=== PATIENT | male | born 1960 | race Caucasian/White ===

== ENCOUNTER 2020-03-29 08:22 | Emergency (ER) | payer OTHER ==
[~2020-03-29] VITALS: Ht 175.3 cm; Wt 84.4 kg
[2020-03-29 08:28] VITALS: Ht 175.3 cm; Wt 84.4 kg
[2020-03-29 09:25] LABS: BASOPHIL % 0.1 % (0-2); PLATELET COUNT 181 x10^3mcL (130-400)
[2020-03-29 09:29] LABS: CALCIUM 8.5 mg/dL (8.5-10.1); CARBON DIOXIDE 30.6 mmol/L (21-32); CHLORIDE SERUM 98 mmol/L (98-107); GFR1 > 60 mL/min; GLUCOSE SERUM 113 mg/dL (74-106); POTASSIUM SERUM 3.9 mmol/L (3.5-5.1); SODIUM SERUM 135 mmol/L (136-145)
[2020-03-29 09:34] LABS: ALKALINE PHOSPHATASE 123 U/L (46-116); ALT/SGPT 166 U/L (16-63); AST/SGOT 264 U/L (15-37); TOTAL PROTEIN, SERUM 6.2 g/dL (6.4-8.2)
[2020-03-29 09:35] LABS: ALBUMIN 3.2 g/dL (3.4-5.0)
[2020-03-29 12:34] VITALS: BP 143/98
[2020-03-29 13:07] LABS: UA SPECIFIC GRAVITY <=1.005 (1.005-1.035); microscopic required? YES; urine erythrocyte TRACE (NEGATIVE)
== END 2020-03-29 12:34 | disposition home or self-care (01) ==
LOC: ED 08:22
PROVIDERS: Emergency Medicine
DX: R10.9 Unspecified abdominal pain (principal); E86.0 Dehydration; R00.0 Tachycardia, unspecified; E87.2 Acidosis; I10 Essential (primary) hypertension
CPT/HCPCS: J1630; J2060; J2270; J7030; Q0092; Q9967